=== PATIENT | male | born 1965 ===

== ENCOUNTER 2025-02-07 06:22 | Day surgery (SDC) | payer BC, SELFPAY ==
[2025-01-31 13:59] VITALS: BMI 31.6
[2025-02-07] VITALS (8 sets, daily range): BP systolic 119–157; BP diastolic 67–91; BMI 31.6
[2025-02-07] MEDS: TYLENOL 1000 MG PO (07:57)
[2025-02-07] MEDS: NORMOSOL-R/PLASMALYTE-A 1000 IV (08:09)
[2025-02-07] MEDS: EMEND 40 MG PO (08:24)
[2025-02-07] MEDS: TRANSDERM-SCOP 1 PATCH TRANSDERM (08:24)
== END 2025-02-07 13:00 | disposition home or self-care (01) ==
LOC: SDS 06:22
PROVIDERS: ATTENDING PHYSICIAN Specialist; FAMILY PHYSICIAN Internal Medicine
DX: M75.122 Complete rotator cuff tear or rupture of left shoulder, not specified as traumatic (principal)
CPT/HCPCS: 29828; 36415; 93005; C1713; C1776